=== PATIENT | male | born 1980 | race Caucasian/White ===

== ENCOUNTER 2021-02-28 07:21 | Emergency (ER) | payer OTHER, SELFPAY ==
--- NOTE | ~2021-02-28 | CT_ITS ---
EXAMINATION: CT SOFT TISSUE NECK WITH CONTRAST CLINICAL INFORMATION: Right tonsil swelling and pain COMPARISON: None TECHNIQUE: Following the intravenous administration of 60 mL of Omnipaque 350 intravenous contrast, helical imaging was performed in the axial plane with generation of coronal and sagittal reformatted images. This CT examination was performed using dose optimization techniques as appropriate, variously including the following: *Automated exposure control *Adjustment of mA and/or kV according to patient size (this includes techniques or standardized protocols for targeted exams where dose is matched to indication/reason for exam; i.e. extremities or head) *Use of iterative reconstruction technique DLP: 843 mGy-cm FINDINGS: There is a soft tissue mass is seen in the right side of the oropharynx and hypopharynx. This involves the right palatine tonsil region and base of the tongue and extends to the right side of the vallecula and epiglottis. This abuts and displaces the uvula to the left. This measures 3 x 3 x 5 cm in AP transverse and longitudinal dimension. This is heterogeneous in attenuation and has a 1.3 x 1.5 x 2.5 cm in AP transverse and longitudinal dimension low-attenuation area. Differential would include mass within the cystic or necrotic change and peritonsillar abscess. There is diffuse cervical lymphadenopathy. Largest lymph node measures 1.4 cm in short axis at the angle of the mandible axial image 64 series 2 and anterior to the [place] carotid artery axial image 70 series 2. The epiglottis is normal. The larynx is normal. Visualized intracranial structures are normal. The orbits are normal. The paranasal sinuses, mastoid air cells and middle ears are clear. Visualized intracranial structures are normal. There is a 1.5 x 1.5 x 1.8 cm nodule in the inferior left lobe of the thyroid gland. The salivary glands are normal. Vascular structures are normal. There is superior mediastinal lymphadenopathy. Largest lymph node is a right paratracheal and tracheoesophageal groove lymph node measuring 1.2 cm in short axis axial image 120 series 2. The superior mediastinum is otherwise normal. The lung apices are clear. Bony structures are unremarkable. CT/CT soft tissue neck w con IMPRESSION: Large heterogeneous soft tissue mass in the right or hypopharynx displacing the uvula and extending to the level of the vallecula right side of the epiglottis. This measures approximately 3 x 3 x 5 cm and has a 1.5 x 1.3 x 2.5 cm low-attenuation or cystic appearing area. Differential would include peritonsillar infection and small abscess versus neoplasm with area of necrosis. Clinical correlation recommended. Diffuse cervical and superior mediastinal lymphadenopathy. 1.5 x 1.5 x 1.8 cm left thyroid nodule. Ultrasound follow-up recommended.
[2021-02-28 07:55] VITALS: BP 151/87; PULSE 88; RESP 20; TEMP 36.8; O2SAT 97; BMI 36.6
[2021-02-28 09:24] LABS: MANUAL DIFF FLAG NO
[2021-02-28] MEDS: dexAMETHasone sod phosphate 10 MG/ML VIAL IVPUSH (09:25)
[2021-02-28] MEDS: Ketorolac Tromethamine 30 MG/ML VIAL IVPUSH (09:25)
[2021-02-28] MEDS: Clindamycin Phosphate/D5W 600 MG/50 ML PIGGYBACK 100 MG IV (09:25)
[2021-02-28 09:26] LABS: Basophils Absolute Auto 0.1 X10*3/uL (0.0-0.2); Basophils Percent Auto 0.3 % (0-2); Eosinophils Absolute Auto 0.1 X10*3/uL (0.0-0.4); Eosinophils Percent Auto 0.7 % (0-4); Hematocrit 44.1 % (42.0-52.0); Hemoglobin 14.7 g/dl (14.0-18.0); Imm Gran Abs Auto 0.06 X10*3/uL (0.00-0.03); Imm Gran Pct Auto 0.4 % (0.0-0.4); Lymphocytes Absolute Auto 2.7 X10*3/uL (1.2-4.9); Mean Corpuscular HGB Conc 33.3 g/dl (31.0-36.0); Mean Corpuscular Hemoglobin 28.5 pg (27.0-33.0); Mean Corpuscular Volume 85.6 fL (80.0-98.0); Mean Platelet Volume 9.5 fL (9.4-12.4); Monocytes Percent Auto 6.7 % (2-11); Neutrophils Absolute Auto 11.1 x10*3/uL (2.0-8.3); Neutrophils Percent Auto 73.9 % (45-73); Platelet Count 240 X10*3/uL (160-400); Red Blood Count 5.15 X10*6/uL (4.60-5.80); Red Cell Distribution Width 12.6 % (11.0-16.0)
--- NOTE | 2021-02-28 09:33 | ED_ITS ---
HPI - General Adult General Chief complaint: General Medical Stated complaint: Abcess Time Seen by Provider: 02/28/21 08:31 Source: patient Mode of arrival: ambulatory Limitations: no limitations History of Present Illness HPI narrative: 40-year-old male with history of tonsillectomy with recurrent right peritonsillar abscess here with reports of sore throat for several days right-sided. No fevers, chills, cough, difficulty breathing or swallowing. Patient tells me normally his abscess will start draining on its own. He did push on it yesterday and was able to express some drainage from the site. Related Data Previous Rx's Medication Instructions Recorded clindamycin HCl 300 mg capsule 300 mg PO Q8H #21 cap 02/28/21 hydrocodone 5 mg-acetaminophen 300 1 tab PO Q6H PRN #8 tab 02/28/21 mg tablet ibuprofen 600 mg tablet 600 mg PO Q8H PRN #20 tab 02/28/21 prednisone 20 mg tablet 40 mg PO DAILY #10 tab 02/28/21 Allergies Allergy/AdvReac Type Severity Reaction Status Date / Time No Known Allergies Allergy Unverified 11/25/19 16:30 Review of Systems Review of Systems: Yes all other systems are reviewed and are negative Constitutional: Constitutional: Reports no additional constitutional complaints, Denies body ache(s), Denies chills, Denies fever(s), Denies hea dache(s) and Denies weakness Eyes: Eyes: Reports no additional eye complaints and Denies change in vision ENT: Reports system reviewed and no additional complaints, except as documented, Denies dizziness, Denies headache(s), Denies nasal congestion, Denies nasal discharge, Denies neck pain and Reports sore throat Cardiovascular: Cardiovascular: Reports no additional cardiovascular complaints, Denies chest pain, Denies leg edema and Denies dyspnea Respiratory: Respiratory: Reports no additional respiratory complaints, Denies cough and Denies dyspnea Gastrointestinal: Gastrointestinal: Reports no additional gastrointestinal complaints, Denies abdominal pain, Denies diarrhea, Denies nausea and Denies vomiting Genitourinary: Genitourinary: Denies urinary incontinence Musculoskeletal: Musculoskeletal: Reports no additional musculoskeletal complaints, Denies back pain, Denies arthralgias, Denies joint swelling, Denies neck pain, Denies numbness and Denies tingling Integumentary/Breasts: Skin/Breast: Reports system reviewed and no additional complaints, except as docu and Denies rash Neurologic: Reports system reviewed and no additional complaints, except as documented, Denies Abnormal speech present, Denies dizziness, Denies headache(s), Denies numbness, Denies tingling and Denies weakness PMFSH Past Medical History Attestation statement: The following information was validated with the patient. Source: old records reviewed and nursing notes reviewed Social History Social History Advance Directives: No Advance Directives Information Provided: No Physical Exam Vital Signs: Vital Signs: Last Vital Signs Temp 98.3 F 02/28/21 07:55 Pulse 78 02/28/21 11:28 Resp 19 02/28/21 11:28 BP 144/82 H 02/28/21 11:28 Pulse Ox 98 02/28/21 11:28 BMI result Body Mass Index 36.6 Const: General: cooperative, healthy appearing, comfortable and no acute distress Orientation/consciousness: patient oriented x3 Limitations: no limitations HENMT: Head: Yes normal to inspection Ears: hearing grossly normal bilaterally and TM's normal bilaterally General nose exam: Normal external nose present Face and sinus: Yes normal facial exam Mouth: Normal oral and palatal mucosa present Throat: Yes posterior oropharynx normal, Yes uvula midline and Yes other (To the right tonsillar area there is swelling with erythema. No fluctuance) Eyes: General: appearance normal, both eyes and all related structures Pupils: Equal, round and reactive pupils present Neck: Neck: Yes normal visual inspection, Yes full ROM, Yes no lymphadenopathy and Yes no meningeal signs Chest: Chest palpation & inspection: normal inspection of the chest Resp: Effort & Inspection: normal respiratory effort Auscultation: clear to auscultation bilaterally Cardio: Rate: regular rate Rhythm: regular rhythm Peripheral pulses: Peripheral pulses 2+ throughout GI: Inspection: Yes normal to inspection Palpation (GI): Soft to palpation and nontender Auscultation: normal bowel sounds Back/Spine/Pelvis: Thoracic/Lumbar Spine: thoracic and lumbar spine normal to inspection Skin: General skin exam: no rashes or lesions noted Neuro: General: patient oriented x3, no meningeal signs, no focal motor deficits and normal sensation to monofilament Cranial nerves: Yes Equal, round and reactive pupils present Cognition (Neuro): normal cognition Spee ch: No Abnormal speech present Gait exam (Neuro): Normal gait present Motor exam (neuro): 5/5 motor strength present throughout Extrem: General: Yes normal to inspection Course Course Course Narrative: 40-year-old male with a history of tonsillectomy and recurrent right peritonsillar abscess here with reports of right-sided sore throat for several days. On exam the patient has right tonsillar swelling with erythema. There is no obvious fluctuance. The left tonsillar area is normal in appearance. No difficulty swallowing or breathing. No lymphadenopathy or meningeal signs. Patient is tolerating his secretions with no difficulty. Will check CT neck, labs, strep screening and COVID testing. Will give Decadron, clindamycin and analgesia 1140-strep test is positive. Labs show a mild leukocytosis which is likely reactive. The patient has a mildly elevated blood glucose of 277. He has no history of diabetes. This may be reactive from infection. No evidence of DKA. I discussed with the patient he should follow-up with primary care doctor to have repeat labs as well as an A1c to confirm diagnosis of diabetes. Additionally the patient has a CT scan of the neck which shows -Large heterogeneous soft tissue mass in the right or hypopharynx displacing the uvula and extending to the level of the vallecula right side of the epiglottis. This measures approximately 3 x 3 x 5 cm and has a 1.5 x 1.3 x 2.5 cm low-attenuation or cystic appearing area. Differential would include peritonsillar infection and small abscess versus neoplasm with area of necrosis. Clinical correlation recommended. Diffuse cervical and superior mediastinal lymphadenopathy. 1.5 x 1.5 x 1.8 cm left thyroid nodule. Ultrasound follow-up recommended.? This case was discussed with my attending Dr. Sahu. Recommend treat patient clinically for peritonsillar abscess and clindamycin. There is no mandible area for incision and drainage. Patient is tolerating his secretions with no difficulty. He is feeling better when I reexamined him. Due to smoking history and findings on CT scan and history of recurrent peritonsillar abscess reportedly is best the patient follow-up with ear nose and throat outpatient. I discussed the findings of the CT scan with him. We discussed pain may need to have further testing done by ENT outpatient. Reviewed worrisome signs and symptoms such as difficulty swallowing, difficulty breathing, high fever and when to return to the emergency department. Comfortable discharge home. Medical Decision Making Medical Records Medical records reviewed: Yes I reviewed the patient's medical records. Lab Data Lab results reviewed: Yes I reviewed the patient's lab results. Result diagrams: 02/28/21 09:20 02/28/21 09:19 Labs: Lab Results 02/28/21 02/28/21 02/28/21 Range/Units 09:19 09:20 09:20 WBC 15.0 H (4.8-10.8) X10*3/uL RBC 5.15 (4.60-5.80) X10*6/uL Hgb 14.7 (14.0-18.0) g/dl Hct 44.1 (42.0-52.0) % MCV 85.6 (80.0-98.0) fL MCH 28.5 (27.0-33.0) pg MCHC 33.3 (31.0-36.0) g/dl RDW 12.6 (11.0-16.0) % Plt Count 240 (160-400) X10*3/uL MPV 9.5 (9.4-12.4) fL Immature Gran % (Auto) 0.4 (0.0-0.4) % Neut % (Auto) 73.9 H (45-73) % Lymph % (Auto) 18.0 L (20-40) % Kimball % (Auto) 6.7 (2-11) % Eos % (Auto) 0.7 (0-4) % Baso % (Auto) 0.3 (0-2) % Lymph # (Auto) 2.7 (1.2-4.9) X10*3/uL Kimball # (Auto) 1.0 (0.1-1.2) X10*3/uL Eos # (Auto) 0.1 (0.0-0.4) X10*3/uL Baso # (Auto) 0.1 (0.0-0.2) X10*3/uL Abs Immat Gran (auto) 0.06 H (0.00-0.03) X10*3/uL Absolute Neuts (auto) 11.1 H (2.0-8.3) x10*3/uL Absolute Nucleated RBC 0.000 (0.0-0.012) X10*3/uL Nucleated RBC % (auto) 0.0 (0.0-0.2) /100WBC Sodium 136 (135-145) mmol/L Potassium 4.1 (3.3-5.1) mmol/L Chloride 100 (96-108) mmol/L Carbon Dioxide 25 (22-29) mmol/L Anion Gap 15 (12-20) BUN 10 (9-16) mg/dL Creatinine 0.81 (0.5-1.4) mg/dL Estim Creat Clear Calc 165.4 Estimated GFR > 60 Random Glucose 277 H (60-115) mg/dL Calcium 9.1 (8.4-10.2) mg/dL COVID-19 (PIETER) (Negative) COVID-19 Clin Com S. pyogenes GrpA ABNER Positive A (Negative) 02/28/21 Range/Units 09:20 WBC (4.8-10.8) X10*3/uL RBC (4.60-5.80) X10*6/uL Hgb (14.0-18.0) g/dl Hct (42.0-52.0) % MCV (80.0-98.0) fL MCH (27.0-33.0) pg MCHC (31.0-36.0) g/dl RDW (11.0-16.0) % Plt Count (160-400) X10*3/uL MPV (9.4-12.4) fL Immature Gran % (Auto) (0.0-0.4) % Neut % (Auto) (45-73) % Lymph % (Auto) (20-40) % Kimball % (Auto) (2-11) % Eos % (Auto) (0-4) % Baso % (Auto) (0-2) % Lymph # (Auto) (1.2-4.9) X10*3/uL Kimball # (Auto) (0.1-1.2) X10*3/uL Eos # (Auto) (0.0-0.4) X10*3/uL Baso # (Auto) (0.0-0.2) X10*3/uL Abs Immat Gran (auto) (0.00-0.03) X10*3/uL Absolute Neuts (auto) (2.0-8.3) x10*3/uL Absolute Nucleated RBC (0.0-0.012) X10*3/uL Nucleated RBC % (auto) (0.0-0.2) /100WBC Sodium (135-145) mmol/L Potassium (3.3-5.1) mmol/L Chloride (96-108) mmol/L Carbon Dioxide (22-29) mmol/L Anion Gap (12-20) BUN (9-16) mg/dL Creatinine (0.5-1.4) mg/dL Estim Creat Clear Calc Estimated GFR Random Glucose (60-115) mg/dL Calcium (8.4-10.2) mg/dL COVID-19 (PIETER) Negative (Negative) COVID-19 Clin Com See Note S. pyogenes GrpA ABNER (Negative) Imaging Data CT necj soft tissue: Attestation: I personally reviewed and interpreted this imaging study as follows: Radiologist's impression: Large heterogeneous soft tissue mass in the right or hypopharynx displacing the uvula and extending to the level of the vallecula right side of the epiglottis. This measures approximately 3 x 3 x 5 cm and has a 1.5 x 1.3 x 2.5 cm low-attenuation or cystic appearing area. Differential would include peritonsillar infection and small abscess versus neoplasm with area of necrosis. Clinical correlation recommended. Diffuse cervical and superior mediastinal lymphadenopathy. 1.5 x 1.5 x 1.8 cm left thyroid nodule. Ultrasound follow-up recommended.? Discharge Plan Discharge Clinical Impression: Strep pharyngitis, Abscess, peritonsillar, Hyperglycemia Patient Disposition: Home, Self-Care Instructions: Pharyngitis (ED), Peritonsillar Abscess (ED) Additional Instructions: Your blood sugar was mildly elevated today. You need to follow-up with primary care doctor be tested for diabetes. Your strep test was positive. Your CT scan shows what appears to be an earlier peritonsillar abscess. However due to her smoking history you need to be seen by ear nose and throat doctor to have further evaluation to make sure that this is not a malignancy. Start your antibiotics and or prednisone tomorrow Prescriptions: New prednisone 20 mg tablet 40 mg PO DAILY Qty: 10 RF: 0 clindamycin HCl 300 mg capsule 300 mg PO Q8H Qty: 21 RF: 0 ibuprofen 600 mg tablet 600 mg PO Q8H PRN (Reason: pain) Qty: 20 RF: 0 hydrocodone-acetaminophen 5-300 mg tablet 1 tab PO Q6H PRN (Reason: pain) Qty: 8 RF: 0 Referrals: Marcello Norman [Physician] - 2 days Physician,Noe [Primary Care Provider] - 2 days Interventions: ED Discharge Assessment Last Done: 02/28/21 11:28 Discharge Date/Time: 02/28/21 11:30
[2021-02-28 09:41] LABS: Anion Gap 15 (12-20); Blood Urea Nitrogen 10 mg/dL (9-16); Calcium 9.1 mg/dL (8.4-10.2); Carbon Dioxide 25 mmol/L (22-29); Chloride 100 mmol/L (96-108); Creatinine Clr Calc Pharmacy 165.4; Estimated Glomerular Filt Rate > 60; Glucose Random 277 mg/dL (60-115); Potassium 4.1 mmol/L (3.3-5.1); Sodium 136 mmol/L (135-145)
[2021-02-28 09:41] LABS: COVID-19 Test Negative (Negative)
[2021-02-28 09:46] LABS: IDNOW Serial# 08D9AD1C; Strep A Nucleic Acid Positive (Negative)
[2021-02-28] MEDS: iohexoL 350 MG/ML 100 ML INFUS..BTL IV (10:08)
[2021-02-28 11:28] VITALS: BP 144/82; PULSE 78; RESP 19; O2SAT 98
== END 2021-02-28 11:30 | disposition home or self-care (01) ==
PROVIDERS: Physician Assistant; Emergency Provider Emergency Medicine Emergency Medical Services
DX: J02.0 Streptococcal pharyngitis (principal); R73.9 Hyperglycemia, unspecified; Z20.822 Contact with and (suspected) exposure to COVID-19; Z79.899 Other long term (current) drug therapy
CPT/HCPCS: 36415; 70491; 80048; 85025; 87635; 87651; 96365; 96375; 99283; 99284; J1100; J1885; Q9967

== ENCOUNTER 2021-08-07 11:27 | Emergency (ER) | payer OTHER, SELFPAY ==
--- NOTE | ~2021-08-07 | US_ITS ---
EXAMINATION: US VENOUS ULTRASOUND WITH DOPPLER LOWER EXTREMITY, LEFT CLINICAL INFORMATION: Left lower extremity pain and swelling COMPARISON: None TECHNIQUE: Ultrasound of the deep veins is performed from the hip to the calf with compression sonography and color and pulse Doppler assessment. Spectral analysis with color-flow imaging is performed. FINDINGS: Thrombus is present in the peroneal veins as well as posterior tibial veins extending into the popliteal and the femoral vein up to the level of the mid thigh. The common femoral vein appears normal. The great saphenous vein appears normal. The contralateral right common femoral vein appears normal. There is no significant popliteal fossa cyst. US/US venous duplex LE LT IMPRESSION: Acute moderately extensive DVT involving the calf and thigh as described above. The common femoral vein is free of thrombus. An addendum will be issued after the referring provider is contacted..
[2021-08-07 12:20] VITALS: BP 145/87; PULSE 98; RESP 18; TEMP 36.8; O2SAT 99; BMI 34.9
[2021-08-07 14:35] LABS: Prothrombin Time 11.8 SEC (9.9-13.0)
[2021-08-07 14:55] LABS: Alanine Aminotransferase 30 U/L (0-40); Albumin Level 3.7 g/dL (3.5-5.0); Alkaline Phosphatase 101 U/L (39-117); Anion Gap 15 (12-20); Aspartate Amino Transferase 21 U/L (5-37); Bilirubin Total 0.5 mg/dL (0.0-1.0); Blood Urea Nitrogen 11 mg/dL (9-16); Calcium 9.3 mg/dL (8.4-10.2); Carbon Dioxide 24 mmol/L (22-29); Chloride 99 mmol/L (96-108); Creatinine Clr Calc Pharmacy 161.6; Estimated Glomerular Filt Rate > 60; Glucose Random 305 mg/dL (60-115); Potassium 4.7 mmol/L (3.3-5.1); Sodium 133 mmol/L (135-145)
[2021-08-07 15:11] LABS: Basophils Absolute Auto 0.1 X10*3/uL (0.0-0.2); Basophils Percent Auto 0.6 % (0-2); Eosinophils Absolute Auto 0.2 X10*3/uL (0.0-0.4); Hematocrit 42.1 % (42.0-52.0); Hemoglobin 14.3 g/dl (14.0-18.0); Imm Gran Abs Auto 0.02 X10*3/uL (0.00-0.03); Imm Gran Pct Auto 0.2 % (0.0-0.4); Lymphocytes Absolute Auto 3.8 X10*3/uL (1.2-4.9); Lymphocytes Percent Auto 40.4 % (20-40); Mean Corpuscular Hemoglobin 28.4 pg (27.0-33.0); Mean Corpuscular Volume 83.7 fL (80.0-98.0); Monocytes Absolute Auto 0.6 X10*3/uL (0.1-1.2); Monocytes Percent Auto 6.7 % (2-11); Neutrophils Absolute Auto 4.7 x10*3/uL (2.0-8.3); Neutrophils Percent Auto 50.1 % (45-73); Platelet Count 246 X10*3/uL (160-400); Red Blood Count 5.03 X10*6/uL (4.60-5.80); Red Cell Distribution Width 12.6 % (11.0-16.0); White Blood Count 9.4 X10*3/uL (4.8-10.8)
--- NOTE | 2021-08-07 15:22 | ED.LOWEXIN ---
HPI - Extremity Injury (Lower) General Chief Complaint: Extremity Injury, Lower Stated Complaint: blood clot l leg Time Seen by Provider: 08/07/21 15:02 Source: patient Mode of arrival: ambulatory Limitations: no limitations History of Present Illness HPI Narrative: This is a 40-year-old male with no known medical history who presents with left leg swelling and pain since Friday morning with waking. Of note the patient does not have a primary care doctor and he has not seen 1 in several years. He tells me that on Friday he was in [place] for his son sporting game. He did spend a lot of time walking around but felt well. When he woke up Friday morning he notices left leg was swollen and has been painful since. He denies any cough, shortness of breath, chest pain, fever. Patient denies any recent travel. No recent illness. No recent surgeries. He is not working right now but tells me he is quite active. He does have a family history of blood clots (mom had PE) but no known history of clotting disorders. Related Data Previous Rx's Medication Instructions Recorded clindamycin HCl 300 mg capsule 300 mg PO Q8H #21 cap 02/28/21 hydrocodone 5 mg-acetaminophen 300 1 tab PO Q6H PRN #8 tab 02/28/21 mg tablet ibuprofen 600 mg tablet 600 mg PO Q8H PRN #20 tab 02/28/21 prednisone 20 mg tablet 40 mg PO DAILY #10 tab 02/28/21 apixaban 5 mg (74 tabs) tablets in 5 mg PO BID #74 ea 08/07/21 a dose pack (Novi DVT-PE Treat 30D Start) metformin 500 mg tablet 500 mg PO BID #60 tab 08/07/21 Allergies Allergy/AdvReac Type Severity Reaction Status Date / Time No Known Allergies Allergy Verified 08/07/21 12:19 Review of Systems Review of Systems: Yes all other systems are reviewed and are negative Constitutional: Constitutional: Reports no additional constitutional complaints, Denies body ache(s), Denies chills, Denies fever(s), Denies headache(s) and Denies weakness Eyes: Eyes: Reports no additional eye complaints and Denies change in vision ENT: Reports system reviewed and no additional complaints, except as documented, Denies dizziness, Denies headache(s), Denies nasal congestion, Denies nasal discharge and Denies neck pain Cardiovascular: Cardiovascular: Reports no additional cardiovascular complaints, Denies chest pain, Reports leg edema and Denies dyspnea Respiratory: Respiratory: Reports no additional respiratory complaints, Denies cough and Denies dyspnea Gastrointestinal: Gastrointestinal: Reports no additional gastrointestinal complaints, Denies abdominal pain, Denies diarrhea, Denies nausea and Denies vomiting Genitourinary: Genitourinary: Denies urinary incontinence Musculoskeletal: Musculoskeletal: Reports no additional musculoskeletal complaints, Denies back pain, Denies arthralgias, Denies joint swelling, Denies neck pain, Denies numbness and Denies tingling Integumentary/Breasts: Skin/Breast: Reports system reviewed and no additional complaints, except as docu and Denies rash Neurologic: Reports system reviewed and no additional complaints, except as documented, Denies Abnormal speech present, Denies dizziness, Denies headache(s), Denies numbness, Denies tingling and Denies weakness PMFSH Past Medical History Attestation statement: The following information was validated with the patient. Source: old records reviewed and nursing notes reviewed Social History Social History Advance Directives: No Advance Directives Information Provided: No Physical Exam Vital Signs: Vital Signs: Last Vital Signs Temp 98.2 F 08/07/21 12:20 Pulse 98 08/07/21 12:20 Resp 18 08/07/21 12:20 BP 145/87 H 08/07/21 12:20 Pulse Ox 99 08/07/21 12:20 BMI result Body Mass Index 34.9 Const: General: cooperative, healthy appearing, comfortable and no acute distress Orientation/consciousness: patient oriented x3 Limitations: no limitations HEENT: Head: Yes normal to inspection Ears: hearing grossly normal bilaterally General nose exam: Normal external nose present Face and sinus: Yes normal facial exam Mouth: Normal oral and palatal mucosa present Throat: Yes posterior oropharynx normal Eyes: General: appearance normal, both eyes and all related structures Pupils: Equal, round and reactive pupils present Neck: Neck: Yes normal visual inspection Chest: Chest palpation & inspection: normal inspection of the chest Resp: Effort & Inspection: normal respiratory effort Auscultation: clear to auscultation bilaterally Cardio: Rate: regular rate Rhythm: regular rhythm Peripheral pulses: Peripheral pulses 2+ throughout GI: Inspection: Yes normal to inspection Palpation (GI): Soft to palpation and nontender Auscultation: normal bowel sounds Back/Spine/Pelvis: Thoracic/Lumbar Spine: thoracic and lumbar spine normal to inspection Skin: General skin exam: no rashes or lesions noted Neuro: General: patient oriented x3, no focal motor deficits and normal sensation to monofilament Cranial nerves: Yes Equal, round and reactive pupils present Cognition (Neuro): normal cognition Speech: No Abnormal speech present Gait exam (Neuro): Normal gait present Motor exam (neuro): 5/5 motor strength present throughout Extrem: Other: The left calf is swollen, tender throughout. Palpable DP and PT pulses. Full range of motion distally. No warmth or redness. Right calf is normal General: Yes normal to inspection Course Course Course Narrative: 40-year-old male with no known medical history presents with left leg swelling and pain for 3 days. Ultrasound ordered from triage shows a LLE DVT. No history of same. Unknown cause, unable to determine any provoking factors. Mom does have history of blood clots. No tachypnea, hypoxia or tachycardia. No complaints of chest pain or shortness of breath. PE less likely. Obtain labs. Patient is noted to have mild hyperglycemia with no evidence of DKA. Patient tells me he has not seen a primary care doctor in many years. Of note patient was seen here in February 2021 for a peritonsillar abscess. At that time he was noted to have hyperglycemia which was mild and was recommended he follow-up with a primary care doctor. Patient tells me he did not do so. Likely underlying diabetes. A1c sent. 20 min spent with patient discussing anticoagulation. Will initiate Eliquis. Will start low-dose metformin for diabetes. Patient met with case management as he does not have a primary care doctor. He was provided with a list of primary care doctors at accept his insurance. Patient is aware he will need to call as he will need to be on anticoagulation for at least 3 months. I have given a one-month supply medication. Reviewed worrisome signs and symptoms of when to return to the emergency department. Comfortable discharge home. MDM - Extremity Injury (Lower) Medical Records Attestation: I reviewed the patient's medical records. Lab Data Attestation: I reviewed the patient's lab results. Result diagrams: 08/07/21 15:00 08/07/21 14:16 Labs: Lab Results 08/07/21 08/07/21 08/07/21 Range/Units 14:16 14:16 15:00 WBC 9.4 (4.8-10.8) X10*3/uL RBC 5.03 (4.60-5.80) X10*6/uL Hgb 14.3 (14.0-18.0) g/dl Hct 42.1 (42.0-52.0) % MCV 83.7 (80.0-98.0) fL MCH 28.4 (27.0-33.0) pg MCHC 34.0 (31.0-36.0) g/dl RDW 12.6 (11.0-16.0) % Plt Count 246 (160-400) X10*3/uL MPV 9.0 L (9.4-12.4) fL Immature Gran % (Auto) 0.2 (0.0-0.4) % Neut % (Auto) 50.1 (45-73) % Lymph % (Auto) 40.4 H (20-40) % [place] % (Auto) 6.7 (2-11) % Eos % (Auto) 2.0 (0-4) % Baso % (Auto) 0.6 (0-2) % Lymph # (Auto) 3.8 (1.2-4.9) X10*3/uL [place] # (Auto) 0.6 (0.1-1.2) X10*3/uL Eos # (Auto) 0.2 (0.0-0.4) X10*3/uL Baso # (Auto) 0.1 (0.0-0.2) X10*3/uL Abs Immat Gran (auto) 0.02 (0.00-0.03) X10*3/uL Absolute Neuts (auto) 4.7 (2.0-8.3) x10*3/uL Absolute Nucleated RBC 0.000 (0.0-0.012) X10*3/uL Nucleated RBC % (auto) 0.0 (0.0-0.2) /100WBC PT 11.8 (9.9-13.0) SEC INR 1.0 (0.9-1.1) Sodium 133 L (135-145) mmol/L Potassium 4.7 (3.3-5.1) mmol/L Chloride 99 (96-108) mmol/L Carbon Dioxide 24 (22-29) mmol/L Anion Gap 15 (12-20) BUN 11 (9-16) mg/dL Creatinine 0.81 (0.5-1.4) mg/dL Estim Creat Clear Calc 161.6 Estimated GFR > 60 Random Glucose 305 H (60-115) mg/dL Estimat Average Glucose mg/dL Hemoglobin A1c % % Calcium 9.3 (8.4-10.2) mg/dL Total Bilirubin 0.5 (0.0-1.0) mg/dL AST 21 (5-37) U/L ALT 30 (0-40) U/L Alkaline Phosphatase 101 (39-117) U/L Total Protein 7.0 (6.5-8.0) g/dL Albumin 3.7 (3.5-5.0) g/dL 08/07/21 Range/Units 15:00 WBC (4.8-10.8) X10*3/uL RBC (4.60-5.80) X10*6/uL Hgb (14.0-18.0) g/dl Hct (42.0-52.0) % MCV (80.0-98.0) fL MCH (27.0-33.0) pg MCHC (31.0-36.0) g/dl RDW (11.0-16.0) % Plt Count (160-400) X10*3/uL MPV (9.4-12.4) fL Immature Gran % (Auto) (0.0-0.4) % Neut % (Auto) (45-73) % Lymph % (Auto) (20-40) % [place] % (Auto) (2-11) % Eos % (Auto) (0-4) % Baso % (Auto) (0-2) % Lymph # (Auto) (1.2-4.9) X10*3/uL [place] # (Auto) (0.1-1.2) X10*3/uL Eos # (Auto) (0.0-0.4) X10*3/uL Baso # (Auto) (0.0-0.2) X10*3/uL Abs Immat Gran (auto) (0.00-0.03) X10*3/uL Absolute Neuts (auto) (2.0-8.3) x10*3/uL Absolute Nucleated RBC (0.0-0.012) X10*3/uL Nucleated RBC % (auto) (0.0-0.2) /100WBC PT (9.9-13.0) SEC INR (0.9-1.1) Sodium (135-145) mmol/L Potassium (3.3-5.1) mmol/L Chloride (96-108) mmol/L Carbon Dioxide (22-29) mmol/L Anion Gap (12-20) BUN (9-16) mg/dL Creatinine (0.5-1.4) mg/dL Estim Creat Clear Calc Estimated GFR Random Glucose (60-115) mg/dL Estimat Average Glucose 315 mg/dL Hemoglobin A1c % 12.6 % Calcium (8.4-10.2) mg/dL Total Bilirubin (0.0-1.0) mg/dL AST (5-37) U/L ALT (0-40) U/L Alkaline Phosphatase (39-117) U/L Total Protein (6.5-8.0) g/dL Albumin (3.5-5.0) g/dL Imaging Data Venous US: Attestation: I personally reviewed and interpreted this imaging study as follows: Radiologist's impression: TECHNIQUE: Ultrasound of the deep veins is performed from the hip to the calf with compression sonography and color and pulse Doppler assessment. Spectral analysis with color-flow imaging is performed. FINDINGS: Thrombus is present in the peroneal veins as well as posterior tibial veins extending into the popliteal and the femoral vein up to the level of the mid thigh. The common femoral vein appears normal. The great saphenous vein appears normal. The contralateral right common femoral vein appears normal. There is no significant popliteal fossa cyst. US/US venous duplex LE LT IMPRESSION: Acute moderately extensive DVT involving the calf and thigh as described above. The common femoral vein is free of thrombus. An addendum will be issued after the referring provider is contacted.. Discharge Plan Discharge Clinical Impression: DVT (deep venous thrombosis), Diabetes mellitus Patient Disposition: Home, Self-Care Instructions: Deep Vein Thrombosis (ED), Type 2 Diabetes in Adults: New Diagnosis (DC), Safe Use of Anticoagulants (ED), Blood Thinners (ED), Diabetes and Nutrition (ED) Additional Instructions: You are being started on a blood thinning medication. This means it increases your risk of bleeding. Seek care in the emergency department for blood in the urine, blood in the stool, vomiting blood. Please come to the emergency department if you hit your head. You can only take Tylenol for pain at home. Do not use any anti-inflammatory medications. You were given a list of primary care doctors. He will need to follow up with them as I only given you a 30 day supply of medication Consider buying compression stockings for your lower legs Prescriptions: [facility] DVT-PE Treat 30D Start 5 mg (74 tabs) tablets,dose pack 5 mg PO BID Qty: 74 0RF Rx Instructions: Take 2 tablets twice daily for 7 days followed by 1 tablet twice daily metformin 500 mg tablet 500 mg PO BID Qty: 60 0RF No Action prednisone 20 mg tablet 40 mg PO DAILY Qty: 10 0RF clindamycin HCl 300 mg capsule 300 mg PO Q8H Qty: 21 0RF ibuprofen 600 mg tablet 600 mg PO Q8H PRN (Reason: pain) Qty: 20 0RF hydrocodone-acetaminophen 5-300 mg tablet 1 tab PO Q6H PRN (Reason: pain) Qty: 8 0RF Referrals: Amaya Curran MD [Physician] - 2 weeks Interventions: ED Discharge Assessment Last Done: 08/07/21 16:09 Discharge Date/Time: 08/07/21 16:12
--- NOTE | 2021-08-07 15:28 | MHC.CM.ED ---
Received case management consult from Monica LIZARRAGA. Roseanna came to ER due to a LLE DVT. Patient does not have a PCP. Met with patient in regards to discharge planning. Patient lives with his sig other and their 4 kids, ambulates independently and had no services prior to coming to the ER. Patient has tried to find a PCP. However, every office he called wasn't accepting new patients. List of PCP's contracted with patient's insurance that are accepting new patients provided. Patient encouraged to call offices to make sure they're accepting new patients and then call [facility] to change the PCP to that provided. Patient verbalizes understanding. Eliquis card already given to patient by Monica LIZARRAGA. Continue to monitor for d/c needs.
[2021-08-07 15:38] LABS: Estimated Average Glucose 315 mg/dL; Hemoglobin A1c % 12.6 %
== END 2021-08-07 16:12 | disposition home or self-care (01) ==
PROVIDERS: Nurse Practitioner Family; Emergency Provider Emergency Medicine
DX: I82.452 Acute embolism and thrombosis of left peroneal vein (principal); M79.605 Pain in left leg; R22.42 Localized swelling, mass and lump, left lower limb; E11.9 Type 2 diabetes mellitus without complications
CPT/HCPCS: 36415; 80053; 83036; 85025; 85610; 93971; 99283; 99284

== ENCOUNTER 2022-07-24 22:26 | Emergency (ER) | payer OTHER, SELFPAY ==
--- NOTE | ~2022-07-24 | XR_ITS ---
EXAMINATION: XR CHEST CLINICAL INFORMATION: Dyspnea COMPARISON: None available. TECHNIQUE: 2 views of the chest were obtained. FINDINGS: There is right middle lobe consolidation. The exam is otherwise unremarkable with no other significant abnormality noted involving the heart, left lung, mediastinum, bony thorax or soft tissues. XR/XR chest 2V IMPRESSION: Right middle lobe pneumonia.
[2022-07-24 22:33] VITALS: BP 149/88; PULSE 89; RESP 18; TEMP 36.6; O2SAT 94; BMI 33.2
--- NOTE | 2022-07-25 00:07 | ED.GENADULT ---
HPI - General Adult General Chief complaint: Dyspnea Stated complaint: pneumonia? Time Seen by Provider: 07/25/22 00:01 Source: patient Mode of arrival: ambulatory Limitations: no limitations History of Present Illness HPI narrative: Patient comes to the emergency room complaining worsening cough. Patient states that 2 weeks ago he was diagnosed with pneumonia, he was admitted to [facility] for couple of days. Then he was discharged but he was sent home without any antibiotics. For last 2 weeks, patient has been complaining of worsening cough with sputum. No chest pain , shortness of breath with exertion. Related Data Previous Rx's Medication Instructions Recorded clindamycin HCl 300 mg capsule 300 mg PO Q8H #21 caps 02/28/21 hydrocodone 5 mg-acetaminophen 300 1 tab PO Q6H PRN pain #8 tabs 02/28/21 mg tablet ibuprofen 600 mg tablet 600 mg PO Q8H PRN pain #20 tabs 02/28/21 prednisone 20 mg tablet 40 mg PO DAILY #10 tabs 02/28/21 apixaban 5 mg (74 tabs) tablets in 5 mg PO BID #74 ea 08/07/21 a dose pack (Omegawave DVT-PE Treat 30D Start) metformin 500 mg tablet 500 mg PO BID #60 tabs 08/07/21 levofloxacin 500 mg tablet 500 mg PO DAILY #9 tabs 07/25/22 Allergies Allergy/AdvReac Type Severity Reaction Status Date / Time No Known Allergies Allergy Verified 08/07/21 12:19 Review of Systems Review of Systems: Constitutional : No Weight loss, No Fever, No Chills, No Night Sweats, No Fatigue, No Malaise ENT/Mouth : No Hearing loss, No Ear Pain, No Nasal Congestion, No Sinus Pain, No Hoarseness, No sore throat, No Rhinorrhea, No Swallowing Difficulty Eyes: No Eye Pain, No Swelling, No Redness, No Foreign Body, No Discharge, No Vision Changes Cardiovascular : No Chest Pain, No SOB, No Dyspnea on Exertion, No Orthopnea, No Edema, No Palpitations Respiratory : Worsening productive cough, No Wheezing, No Smoke Exposure, No Dyspnea Gastrointestinal : No Nausea, No Vomiting, No Diarrhea, No Constipation, No abdominal Pain, No Hematochezia, No Melena Genitourinary : no irregular bleeding, No Dysuria, No Urinary Frequency, No Hematuria, No Urinary Incontinence, No Urgency, No Flank Pain, No Urinary Flow Changes, No Hesitancy Musculoskeletal : No joint pain, No Myalgias, No Joint Swelling Skin : No Skin Lesions, No rash Neuro : No Weakness, No Numbness, No Paresthesias, No Loss of Consciousness, No Dizziness, No Headache Psych : No Anxiety/Panic, No Depression, No SI/HI/AH/VH, No Social Issues, Heme/Lymph: No Bruising, No Bleeding,No Lymphadenopathy Endocrine : No Polyuria, No Polydipsia, No Temperature Intolerance [facility] Past Medical History Medical History Diabetes Social History Social History Advance Directives: No Advance Directives Information Provided: No Physical Exam ED Vital Signs: Vital Signs - 24 hr 07/24/22 22:33 07/25/22 00:16 Temperature 97.8 F 98.5 F Pulse Rate 89 81 Respiratory Rate 18 22 H Blood Pressure 149/88 H 147/86 H Pulse Oximetry 94 94 Oxygen Delivery Method Room Air Room Air BMI result Body Mass Index 33.2 Const Other: Appearance: Alert. Oriented X3. No acute distress. Eyes: Pupils equal, round and reactive to light. ENT: Pharynx normal. Neck: Normal inspection. Neck supple. No lymph nodes noted. No crepitus CVS: Normal heart rate and rhythm. Pulses normal. Normal S1 and S2 Respiratory: No respiratory distress. Breath sounds normal. No Wheezing. No rales Abdomen: Soft and nontender. No rigidity. No distention. Skin: Skin warm and dry. Normal skin color. Normal skin turgor. Extremities: No lower extremity edema. No Lacerations. No Rash Neuro: Oriented X 3. No motor deficit. No sensory deficit. Moving all extremities. No slurred speech. CN 2 through 12 grossly intact Psych: calm, cooperative, normal affect Medical Decision Making Medical Decision Making MDM Narrative: -patient did not finish entire course of antibiotics for pneumonia. Patient did not come before because he was hoping that he would feel better. However, his symptoms are actually worsening. -my interpretation of chest x-ray, right middle/lower lobe pneumonia -blood pressure stable, no fever, sepsis not suspected -patient was given the 1st dose of antibiotics in the emergency room, [facility] -patient's ambulation trial was successful, oxygen saturation remained at 95% on room air Lab Data [facility] Lab Attestation statement: I reviewed the patient's lab results. 07/25/22 00:51 07/25/22 00:51 Labs: Lab Results 07/25/22 Range/Units 00:51 WBC 9.7 (4.8-10.8) X10*3/uL RBC 4.56 L (4.60-5.80) X10*6/uL Hgb 13.3 L (14.0-18.0) g/dl Hct 39.2 L (42.0-52.0) % MCV 86.0 (80.0-98.0) fL MCH 29.2 (27.0-33.0) pg MCHC 33.9 (31.0-36.0) g/dl RDW 12.7 (11.0-16.0) % Plt Count 353 D (160-400) X10*3/uL MPV 9.2 L (9.4-12.4) fL Immature Gran % (Auto) 0.3 (0.0-0.4) % Neut % (Auto) 61.7 (45-73) % Lymph % (Auto) 27.7 (20-40) % [place] % (Auto) 7.6 (2-11) % Eos % (Auto) 2.0 (0-4) % Baso % (Auto) 0.7 (0-2) % Lymph # (Auto) 2.7 (1.2-4.9) X10*3/uL [place] # (Auto) 0.7 (0.1-1.2) X10*3/uL Eos # (Auto) 0.2 (0.0-0.4) X10*3/uL Baso # (Auto) 0.1 (0.0-0.2) X10*3/uL Abs Immat Gran (auto) 0.03 (0.00-0.03) X10*3/uL Absolute Neuts (auto) 6.0 (2.0-8.3) x10*3/uL Absolute Nucleated RBC 0.000 (0.0-0.012) X10*3/uL Nucleated RBC % (auto) 0.0 (0.0-0.2) /100WBC Radiology Impression Discussion of test interpretation with radiology: I have reviewed the radiologist's reading. Radiologist Impression: INDINGS: There is right middle lobe consolidation. The exam is otherwise unremarkable with no other significant abnormality noted involving the heart, left lung, mediastinum, bony thorax or soft tissues. XR/XR chest 2V IMPRESSION: Right middle lobe pneumonia Discharge Plan Discharge Clinical Impression: Pneumonia Patient Disposition: Home, Self-Care Instructions: Pneumonia (ED) Additional Instructions: Please follow-up with your primary care physician tomorrow. If you have any worsening or new symptoms, please return to the emergency room or call 911 Prescriptions: New levofloxacin 500 mg tablet 500 mg PO DAILY Qty: 9 0RF No Action prednisone 20 mg tablet 40 mg PO DAILY Qty: 10 0RF clindamycin HCl 300 mg capsule 300 mg PO Q8H Qty: 21 0RF ibuprofen 600 mg tablet 600 mg PO Q8H PRN (Reason: pain) Qty: 20 0RF hydrocodone-acetaminophen 5-300 mg tablet 1 tab PO Q6H PRN (Reason: pain) Qty: 8 0RF Eliquis DVT-PE Treat 30D Start 5 mg (74 tabs) tablets,dose pack 5 mg PO BID Qty: 74 0RF Rx Instructions: Take 2 tablets twice daily for 7 days followed by 1 tablet twice daily metformin 500 mg tablet 500 mg PO BID Qty: 60 0RF
--- NOTE | 2022-07-25 00:14 | MHC.EDTECH ---
This tech assumed care of patient 0015 ,patient placed in hospital attire, vitals taken and placed on threat monitoring analyst. Call nation in reach.
[2022-07-25 00:16] VITALS: BP 147/86; PULSE 81; RESP 22; TEMP 36.9; O2SAT 94
[2022-07-25 00:57] LABS: Basophils Absolute Auto 0.1 X10*3/uL (0.0-0.2); Basophils Percent Auto 0.7 % (0-2); Eosinophils Absolute Auto 0.2 X10*3/uL (0.0-0.4); Hematocrit 39.2 % (42.0-52.0); Hemoglobin 13.3 g/dl (14.0-18.0); Imm Gran Abs Auto 0.03 X10*3/uL (0.00-0.03); Imm Gran Pct Auto 0.3 % (0.0-0.4); Lymphocytes Absolute Auto 2.7 X10*3/uL (1.2-4.9); Lymphocytes Percent Auto 27.7 % (20-40); MANUAL DIFF FLAG NO; Mean Corpuscular HGB Conc 33.9 g/dl (31.0-36.0); Mean Corpuscular Hemoglobin 29.2 pg (27.0-33.0); Mean Platelet Volume 9.2 fL (9.4-12.4); Monocytes Absolute Auto 0.7 X10*3/uL (0.1-1.2); Monocytes Percent Auto 7.6 % (2-11); Neutrophils Percent Auto 61.7 % (45-73); Platelet Count 353 X10*3/uL (160-400); Red Blood Count 4.56 X10*6/uL (4.60-5.80); Red Cell Distribution Width 12.7 % (11.0-16.0); White Blood Count 9.7 X10*3/uL (4.8-10.8)
--- NOTE | 2022-07-25 00:58 | MHC.EDTECH ---
Labs drawn on patient,and patient ambulated to bathroom with no assistance.
[2022-07-25 01:13] LABS: Anion Gap 14 (12-20); Blood Urea Nitrogen 12 mg/dL (9-16); Calcium 8.5 mg/dL (8.4-10.2); Carbon Dioxide 25 mmol/L (22-29); Chloride 105 mmol/L (96-108); Creatinine Clr Calc Pharmacy 168.1; Estimated Glomerular Filt Rate > 60; Glucose Random 174 mg/dL (60-115); Potassium 4.3 mmol/L (3.3-5.1); Sodium 140 mmol/L (135-145)
--- NOTE | 2022-07-25 01:16 | MHC.EDTECH ---
This tech ambulated patient with O2 Sat monitoring, Patient has a walking O2 Sat of 95% on room air. and SONJA Carrasco was made aware
[2022-07-25 01:18] VITALS: O2SAT 95
--- NOTE | 2022-07-25 01:19 | PC.NURSE ---
this rn assumed care of pt @ 0015 pt ambulatory. pt partner at bedside. pt calm and cooperative.
[2022-07-25 01:29] VITALS: BP 154/89; PULSE 85; RESP 16; TEMP 36.9; O2SAT 94
--- NOTE | 2022-07-25 01:30 | MHC.EDTECH ---
Vitals taken, patient is getting discharged at this time RN at bedside.
[2022-07-25] MEDS: levoFLOXacin 500 MG TABLET PO (01:31)
--- NOTE | 2022-07-25 01:33 | PC.NURSE ---
pt medicated according to mar. vazquez pwd. pt's partner at bedside. pt provided with discharge packet. pt verbalized understanding of discharge plan
== END 2022-07-25 01:34 | disposition home or self-care (01) ==
PROVIDERS: Emergency Provider Emergency Medicine
DX: J18.9 Pneumonia, unspecified organism (principal); E11.9 Type 2 diabetes mellitus without complications; Z79.84 Long term (current) use of oral hypoglycemic drugs
CPT/HCPCS: 36415; 71046; 80048; 85025; 99283; 99284

== ENCOUNTER 2023-04-06 11:27 | Emergency (ER) | payer OTHER, SELFPAY ==
[2023-04-06 11:42] VITALS: BP 149/95; PULSE 76; RESP 20; TEMP 37.2; O2SAT 96; BMI 35.4
--- NOTE | 2023-04-06 11:47 | ED_ITS ---
HPI - General Adult General Chief complaint: Dental/Oral Stated complaint: Dental oinfection Time Seen by Provider: 04/06/23 11:46 Source: patient Mode of arrival: ambulatory Limitations: no limitations History of Present Illness HPI narrative: 42 yold male presents to the ED for tooth right upper dental pain with slight upper face swelling. Patient denies any trauma, fever, drooling, change in voice, neck swelling, chest pain, or shortness of breath. Related Data Previous Rx's Medication Instructions Recorded clindamycin HCl 300 mg capsule 300 mg PO Q8H #21 caps 02/28/21 hydrocodone 5 mg-acetaminophen 300 1 tab PO Q6H PRN pain #8 tabs 02/28/21 mg tablet ibuprofen 600 mg tablet 600 mg PO Q8H PRN pain #20 tabs 02/28/21 prednisone 20 mg tablet 40 mg (2 x 20 mg) PO DAILY #10 tabs 02/28/21 apixaban 5 mg (74 tabs) tablets in 5 mg PO BID #74 ea 08/07/21 a dose pack (Socset. DVT-PE Treat 30D Start) metformin 500 mg tablet 500 mg PO BID #60 tabs 08/07/21 levofloxacin 500 mg tablet 500 mg PO DAILY #9 tabs 07/25/22 acetaminophen 325 mg capsule 325 mg PO QID PRN pain 7 days #28 04/06/23 (Tylenol) caps amoxicillin 875 mg-potassium 1 tab PO BID 10 days #20 tabs 04/06/23 clavulanate 125 mg tablet oxycodone 5 mg capsule 5 mg PO Q8H PRN pain 3 days #9 caps 04/06/23 Allergies Allergy/AdvReac Type Severity Reaction Status Date / Time No Known Allergies Allergy Verified 04/06/23 11:45 Review of Systems 2 Review of Systems: Right upper molar pain. Yes all other systems are reviewed and are negative [facility] Past Medical History Medical History Diabetes Social History Social History Advance Directives: No Physical Exam ED Vital Signs: Vital Signs - 24 hr 04/06/23 11:42 Temperature 99.0 F Pulse Rate 76 Respiratory Rate 20 Blood Pressure 149/95 H Pulse Oximetry 96 Oxygen Delivery Method Room Air BMI result Body Mass Index 35.4 Const General: cooperative, healthy appearing, comfortable, no acute distress, well developed, alert, awake and Physically active Orientation/consciousness: oriented to person, oriented to place, oriented to time and patient oriented x3 HENMT Head: Yes normal to inspection, Yes No palpable skull fracture present, Yes normocephalic and Yes atraumatic Head images: 2 1. Slight swelling. No mass on palpaation or fluctulance. Teeth image: 2 1. yellow collection in tooth pocket with tenderness. Negative trismus. Negative gum swelling or erythema. negative for drooling. negative for hoarsness. negative for neck swelling Eyes General: appearance normal, both eyes and all related structures Neck Neck: Yes normal visual inspection, Yes full ROM, Yes no lymphadenopathy, Yes no meningeal signs, Yes trachea midline, Yes supple, No anterior neck swelling and No tender Chest Chest palpation & inspection: normal inspection of the chest and normal palpation of entire chest wall Resp Effort & Inspection: normal respiratory effort and able to speak in complete sentences Auscultation: clear to auscultation bilaterally Cardio Jugular venous distension: no JVD Heart sounds: S1 normal heart sound present and S2 normal heart sound present GI Inspection: Yes normal to inspection and No abdominal wall ecchymosis Palpation (GI): Soft to palpation, not firm, nontender, no guarding and not rigid General: No CVA tenderness and Yes no CVA tenderness Back/Spine/Pelvis Back: no CVA tenderness, No CVA tenderness and No back tenderness Skin General skin exam: no rashes or lesions noted, elasticity normal and turgor normal Neuro General: oriented to person, oriented to place, oriented to time, patient oriented x3, gait normal, tone normal, moves all extremities, Normal light touch and pain sensation, no meningeal signs, no focal motor deficits, CN's II-XI intact bilaterally and normal sensation to monofilament Extrem General: Yes normal to inspection, Yes full ROM and Yes capillary refill normal Psych Appearance: grossly normal, well kempt and not disheveled Medical Decision Making Medical Decision Making MDM Narrative: 42-year-old male presents to the ED for right upper molar pain with slight right upper facial swelling. Patient states will follow-up with dentist this week but just need antibiotics and pain medication. Patient denied any respiratory distress and negative for any swelling of neck. Physical exam negative for any neck swelling, drooling, trismus, change in voice, foul odor on breath, or oral lesions. Not suspecting any Benson's angina, retropharyngeal abscess, osteomylieitis, cellulitis, or large dental abscess. Patient explained worrsime signs and informed to return to the ED if he has them, Differential Diagnosis Differential Diagnoses: The differential diagnosis associated with the presentation includes (benson angina, retropharyngeal abscess, osteomylieitis, dental abscess) Admission/Observation Consideration of admission/observation: Escalation of care including admission/observation considered External Record Review External record reviewed: Other (prior ED visits) Prescription Management I considered prescription management with: Pain Medication and Antibiotic Discharge Plan Discharge Clinical Impression: Toothache Patient Disposition: Home, Self-Care Instructions: Toothache (ED) Additional Instructions: Return to the ED immediately for any worsening facial swelling, any neck swelling, drooling, change in voice shortness of breath, chest pain, inability tolerate solid food/liquid, foul breath odor, or any other concerning symptoms. Recommend follow-up with your dentist. Prescriptions: New amoxicillin-pot clavulanate 875-125 mg tablet 1 tab PO BID 10 Days Qty: 20 0RF acetaminophen [Tylenol] 325 mg capsule 325 mg PO QID PRN (Reason: pain) 7 Days Qty: 28 0RF oxycodone 5 mg capsule 5 mg PO Q8H PRN (Reason: pain) 3 Days Qty: 9 0RF Rx Instructions: Partial Fill upon patient request. No Action prednisone 20 mg tablet 40 mg PO DAILY Qty: 10 0RF clindamycin HCl 300 mg capsule 300 mg PO Q8H Qty: 21 0RF ibuprofen 600 mg tablet 600 mg PO Q8H PRN (Reason: pain) Qty: 20 0RF hydrocodone-acetaminophen 5-300 mg tablet 1 tab PO Q6H PRN (Reason: pain) Qty: 8 0RF Eliquis DVT-PE Treat 30D Start 5 mg (74 tabs) tablets,dose pack 5 mg PO BID Qty: 74 0RF Rx Instructions: Take 2 tablets twice daily for 7 days followed by 1 tablet twice daily metformin 500 mg tablet 500 mg PO BID Qty: 60 0RF levofloxacin 500 mg tablet 500 mg PO DAILY Qty: 9 0RF Stand Alone Forms: Work/School Release Interventions: ED Discharge Assessment Last Done: 04/06/23 11:57 Discharge Date/Time: 04/06/23 11:57 Print Language: Cymraes
== END 2023-04-06 11:57 | disposition home or self-care (01) ==
PROVIDERS: Emergency Provider Emergency Medicine
DX: K02.9 Dental caries, unspecified (principal); Z79.899 Other long term (current) drug therapy
CPT/HCPCS: 99282; 99283

== ENCOUNTER 2023-10-20 11:11 | Emergency (ER) | payer OTHER, SELFPAY ==
--- NOTE | ~2023-10-20 | XR_ITS ---
EXAMINATION: XR CHEST CLINICAL INFORMATION: Fever. COMPARISON: 07/24/2022 TECHNIQUE: 2 views of the chest were obtained. FINDINGS: The lungs are well expanded. Patchy airspace disease in the right middle lobe. No pleural effusion. Cardiac silhouette is unchanged. XR/XR chest 2V IMPRESSION: Possible right middle lobe infiltrate. Advise clinical correlation and short interval follow-up imaging.
[2023-10-20 11:37] VITALS: BP 142/93; PULSE 100; RESP 18; TEMP 36.8; O2SAT 95; BMI 32.0
--- NOTE | 2023-10-20 11:39 | ED.GENADULT ---
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 States he has been taking it easy for the past 5 days to feel better, but symptoms have not improved. Patient endorses fever(measured 100.6 yesterday), chills, headaches, loss of appetite, overall muscle pain throughout the entire body, weakness, tiredness which he has had for a long time . Endorses slight swelling to lower legs, however has been persistent for years. Patient endorses numbness on distal half of both feet bilaterally, stasis has been present for a couple years now. Patient states he has a history of tonsillar abscess, and has a history of a tonsillectomy. States the previous doctors said there was access can that continues to get recurrent abscess formation. He is of arrived to [facility] multiple times for abscess drainage, however they were not able to reach it. States abscess popped on its own 1 coughing multiple times. He is on antibiotics for this abscess. Patient states he has taken Motrin about 400 mg 3 times a day for the last 5 days. He is currently not on any medications, does not take a medications for his diabetes or blood thinners for the prior DVT. Patient does not have a PCP in his last visit was about 3-4 years ago. He does not endorse dizziness, shortness of breath, difficulty breathing, chest pain, abdominal pain, nausea, vomiting, diarrhea, urinary symptoms, difficulty with bowel movements, joint pain, muscle weakness, cough. MD complaint: body aches, fever Onset (ago): day(s) (5) Location: left, upper extremity and lower extremity (Plantar aspect of left and right foot, point tenderness) Severity: mild Pain Consistency: constant and other (worse in the morning) Relieving factors: medication (Motrin) Associated symptoms: fever/chills, headaches and loss of appetite Treatments prior to arrival: NSAID (Motrin) Related Data Previous Rx's ?Medication ?Instructions ?Recorded clindamycin HCl 300 mg capsule 300 mg PO Q8H #21 caps 02/28/21 hydrocodone 5 mg-acetaminophen 300 1 tab PO Q6H PRN pain #8 tabs 02/28/21 mg tablet ibuprofen 600 mg tablet 600 mg PO Q8H PRN pain #20 tabs 02/28/21 prednisone 20 mg tablet 40 mg (2 x 20 mg) PO DAILY #10 tabs 02/28/21 apixaban 5 mg (74 tabs) tablets in 5 mg PO BID #74 ea 08/07/21 a dose pack (Contact At Once! DVT-PE Treat 30D Start) metformin 500 mg tablet 500 mg PO BID #60 tabs 08/07/21 levofloxacin 500 mg tablet 500 mg PO DAILY #9 tabs 07/25/22 acetaminophen 325 mg capsule 325 mg PO QID PRN pain 7 days #28 04/06/23 (Tylenol) caps amoxicillin 875 mg-potassium 1 tab PO BID 10 days #20 tabs 04/06/23 clavulanate 125 mg tablet oxycodone 5 mg capsule 5 mg PO Q8H PRN pain 3 days #9 caps 04/06/23 azithromycin 250 mg tablet See Rx Instructions PO .COMPLEX #6 10/20/23 (Zithromax Z-Joel) tabs cefuroxime axetil 500 mg tablet 500 mg PO BID 7 days #14 tabs 10/20/23 glipizide 5 mg tablet 5 mg PO DAILY #30 tabs 10/20/23 Allergies Allergy/AdvReac Type Severity Reaction Status Date / Time No Known Allergies Allergy Verified 10/20/23 11:41 Review of Systems Review of Systems: Yes all other systems are reviewed and are negative FOR[facility] Past Medical History Medical History Diabetes Social History Social History Advance Directives: No Advance Directives Information Provided: No Do you have a plan to hurt others: No Plan Physical Exam ED Vital Signs: Vital Signs - 24 hr 10/20/23 11:37 10/20/23 14:56 10/20/23 15:37 Temperature 98.2 F 98.0 F 98.0 F Pulse Rate 100 80 80 Respiratory Rate 18 20 20 Blood Pressure 142/93 H 127/81 127/81 Pulse Oximetry 95 95 95 Oxygen Delivery Method Room Air Room Air Room Air BMI result Body Mass Index 32.0 Appearance: Alert. Oriented X3. No acute distress. HEENT: normal inspection, poor dentition CVS: Normal heart rate and rhythm. Pulses normal. Respiratory: No respiratory distress. Skin: Skin warm and dry. Normal skin color. Normal skin turgor. No rashes. Multiple dark colored scars on lower legs bilaterally, 1cm wound on left leg with scab present. Extremities: Slight swelling of legs bilaterally 1+, decreased sensation of distal half of feet bilaterally, pain with palpation of upper left arm (bicep), no pain or warmth noted on lower extremities, no pain with palpation to lower legs, no erythema noted in feet or lower extremities Neuro: Oriented X 3. No motor deficit. Sensory numbness on distal half of feet bilaterally. Course Course Course Narrative: RME performed by Nellie Matias PA-C. Patient is a 43 year old assigned male at presenting to the emergency department with his entire body hurting and feeling as though he has food or something stuck in between his throat and his stomach. Patient states that he has type 2 diabetes but doesn't manage it. Patient states over the last 5 days he has had bilateral arm and leg pain. Detailed physical exam and review of systems are deferred to the biomedical photographer. Labs and swabs ordered. Patient placed back in the waiting room pending room availability and results. Medications Administered Discontinued Medications Generic Name Dose Route Start Last Admin Trade Name Freq PRN Reason Stop Dose Admin Sodium Chloride 1,000 mls @ 999 mls/hr 10/20/23 13:00 10/20/23 15:06 Ns IV 10/20/23 14:00 Infused .Q1H1M TYLOR Infusion Procedures EJ/Peripheral Line Arm R: Time Out Performed: No Skin Cleansed in Sterile Fashion: Yes Size (gauge): 20 IV Secured and Dressing Applied: Yes Patient Tolerated Procedure: well and no complications Medical Decision Making Medical Decision Making MDM Narrative: 43 year old male with PMH of diabetes, recurrent peritonsilar abscess and DVT in his right leg, opiate use disorder on methadone, ADHD and anxiety who presents to the ED today with complaints generalized muscle pain, specifically pain in his left upper extremity, and pain on the plantar aspect of both feet for 5 days. Patient arrives to the ER hemodynamically stable. he is mildly tachycardic with a heart rate of 100. He is afebrile here. Lab workup was showing a leukocytosis of 16,000. his viral panel was negative. His platelet counts elevated with normal LFTs. His kidney function is normal. His sugar is 398 with no anion gap. He is noncompliant with his glipizide, currently has no PCP. CPK and inflammatory markers were added to his workup. CPK is negative, inflammatory markers are markedly elevated, unclear etiology. Considering a rheumatologic or autoimmune process. Patient denies any recent tick bites, the only activity he does outside is mow the lawn. Tick panel was sent. Chest x-ray was obtained given his report of fever that shows a possible evolving right-sided pneumonia. His urinalysis is positive for an infection slightly. His examination today is unremarkable, his strength is equal and symmetrical & throughout he remained afebrile while in the ER. No significant muscle tenderness or pain. IV was established and he was given IV fluids with improvement in his glucose to 262. Will start patient on antibiotics to cover pneumonia and UTI. Tick-borne panel is pending. We will be contacted if it is positive. Will start patient on glipizide for his untreated diabetes. He was counseled on importance of medication compliance and need for outpatient follow-up and care. Patient expressed understanding and all questions were answered. Stable for discharge home Differential Diagnosis Differential Diagnoses: The differential diagnosis associated with the presentation includes Viral illness, pneumonia, UTI, polymyositis, autoimmune disorder, rheumatologic disorder, tick-borne illness, EBV Admission/Observation Consideration of admission/observation: Escalation of care including admission/observation considered Lab Data MDM Lab Attestation statement: I reviewed the patient's lab results. Leukocytosis, thrombocytosis, anemia, pseudohyponatremia with hyperglycemia, no anion gap 10/20/23 11:48 10/20/23 11:48 Labs: Lab Results 10/20/23 10/20/23 10/20/23 Range/Units 11:48 13:07 15:05 WBC 16.0 H (4.8-10.8) X10*3/uL RBC 4.60 (4.60-5.80) X10*6/uL Hgb 12.9 L (14.0-18.0) g/dl Hct 38.5 L (42.0-52.0) % MCV 83.7 (80.0-98.0) fL MCH 28.0 (27.0-33.0) pg MCHC 33.5 (31.0-36.0) g/dl RDW 12.5 (11.0-16.0) % Plt Count 513 H D (160-400) X10*3/uL MPV 8.7 L (9.4-12.4) fL Immature Gran % (Auto) 0.9 H (0.0-0.4) % Neut % (Auto) 74.0 H (45-73) % Lymph % (Auto) 16.4 L (20-40) % [place] % (Auto) 7.4 (2-11) % Eos % (Auto) 0.7 (0-4) % Baso % (Auto) 0.6 (0-2) % Lymph # (Auto) 2.6 (1.2-4.9) X10*3/uL [place] # (Auto) 1.2 (0.1-1.2) X10*3/uL Eos # (Auto) 0.1 (0.0-0.4) X10*3/uL Baso # (Auto) 0.1 (0.0-0.2) X10*3/uL Abs Immat Gran (auto) 0.14 H (0.00-0.03) X10*3/uL Absolute Neuts (auto) 11.9 H (2.0-8.3) x10*3/uL Absolute Nucleated RBC 0.000 (0.0-0.012) X10*3/uL Nucleated RBC % (auto) 0.0 (0.0-0.2) /100WBC ESR 76 H (0-15) MM/HR Sodium 132 L (135-145) mmol/L Potassium 4.2 (3.3-5.1) mmol/L Chloride 96 (96-108) mmol/L Carbon Dioxide 25 (22-29) mmol/L Anion Gap 15 (12-20) BUN 11 (9-16) mg/dL Creatinine 0.90 (0.5-1.4) mg/dL Estim Creat Clear Calc 127.4 Estimated GFR > 60 POC Glucose 262 H (60-115) mg/dL Random Glucose 398 H* (60-115) mg/dL Calcium 9.2 D (8.4-10.2) mg/dL Magnesium 1.9 (1.6-2.6) mg/dL Total Bilirubin 0.5 (0.0-1.0) mg/dL AST 10 (5-37) U/L ALT 13 (0-40) U/L Alkaline Phosphatase 103 (39-117) U/L Total Creatine Kinase 28 L (38-174) U/L C-Reactive Protein 11.16 H (< or = 0.50) mg/dL Total Protein 7.8 (6.5-8.0) g/dL Albumin 3.4 L (3.5-5.0) g/dL Urine Color Yellow Urine Appearance Clear Urine pH 6.0 (5.0-9.0) Ur Specific [place] 1.020 (1.005-1.025) Urine Protein Negative (Neg-Trace) mg/dL Urine Glucose (UA) >=1000 H (Negative) mg/dL Urine Ketones Negative (Negative) mg/dL Urine Blood Trace H (Negative) Urine Nitrite Negative (Negative) Ur Leukocyte Esterase Small (1+) H (Negative) Urine RBC 0-2 (0-2) /HPF Urine WBC 21-50 H (0-5) /HPF Ur Squamous Epith Cells 0-2 (0-2) /HPF Urine Bacteria None Seen (None Seen) Hyaline Casts 0-2 (0-2) /LPF Urine Opiates Screen Not Detected (Not Detect) Ur Buprenorphine Scrn Not Detected (Not Detect) ng/mL Ur Oxycodone Screen Positive H (Not Detect) ng/mL Urine Methadone Screen Positive H (Not Detect) ng/mL Urine Fentanyl Screen Not Detected (Not Detect) Ur Barbiturates Screen Not Detected (Not Detect) Ur Phencyclidine Scrn Not Detected (Not Detect) Ur Amphetamines Screen POSITIVE H (Not Detect) U Benzodiazepines Scrn Not Detected (Not Detect) Urine Cocaine Screen Not Detected (Not Detect) U Marijuana (THC) Screen Not Detected (Not Detect) Influenza Type A (PCR) NEGATIVE (Negative) Influenza Type B (PCR) NEGATIVE (Negative) RSV RNA Qual (PCR) NEGATIVE (Negative) SARS-CoV-2 RNA (RT-PCR) NEGATIVE (Negative) S. pyogenes GrpA ABNER Negative (Negative) Independent Interpretation I performed an independent interpretation of an: Plain X-Ray Interpretation: Trace right middle lobe opacity consistent with possible early pneumonia, agree with radiology read Radiology Impression Discussion of test interpretation with radiology: I have reviewed the radiologist's reading. Radiologist Impression: XR CHEST CLINICAL INFORMATION: Fever. COMPARISON: 07/24/2022 TECHNIQUE: 2 views of the chest were obtained. FINDINGS: The lungs are well expanded. Patchy airspace disease in the right middle lobe. No pleural effusion. Cardiac silhouette is unchanged. XR/XR chest 2V IMPRESSION: Possible right middle lobe infiltrate. Advise clinical correlation and short interval follow-up imaging. Independent Historian Clinical information obtained from an independent historian. History obtained from or confirmed by: Spouse External Record Review External record reviewed: Outpatient record, Prior outpatient labs and Prior outpatient radiology Prescription Management I considered prescription management with: Pain Medication and Antibiotic Chronic Conditions Patient?s care impacted by: Diabetes Social Determinants Patient?s care significantly limited by Social Determinants of Health including: Problems related to primary support group and Other Social Determinant of Health Critical Care Time Critical Care Time Critical Care Time: No Discharge Plan Discharge Clinical Impression: Hyperglycemia due to diabetes mellitus Urinary tract infection Qualifiers: Urinary tract infection type: acute cystitis Hematuria presence: with hematuria Qualified Code(s): N30.01 - Acute cystitis with hematuria Pneumonia Qualifiers: Pneumonia type: due to unspecified organism Laterality: right Lung location: unspecified part of lung Qualified Code(s): J18.9 - Pneumonia, unspecified organism Patient Disposition: Home, Self-Care Instructions: Urinary Tract Infection in Men (DC), Community Acquired Pneumonia (DC) Additional Instructions: Your lab workup today showed glucose of almost 400. You had very elevated inflammatory markers. Your white blood cell count was also elevated. You are found to have pneumonia and urinary tract infection. Take the prescribed antibiotics as directed, complete the entire course and do not miss any doses Rest and drink plenty of fluids. Take the prescribed glipizide for your diabetes. You most likely will need to have this medication titrated up and have another medication added to manage your diabetes. A tick-borne panel was sent off, if anything comes back positive we will call you and get you started on the appropriate antibiotic for this. It is very important that you find a primary care doctor to manage her diabetes. If you develop new or worsening symptoms call 911 or come back to the ER for further evaluation. Prescriptions: New azithromycin [Zithromax Z-Joel] 250 mg tablet See Rx Instructions .ROUTE .COMPLEX Qty: 6 0RF Rx Instructions: take 500 mg today (day 1), then 250 mg for 4 days (days 2-5) cefuroxime axetil 500 mg tablet 500 mg PO BID 7 Days Qty: 14 0RF glipizide 5 mg tablet 5 mg PO DAILY Qty: 30 1RF No Action prednisone 20 mg tablet 40 mg PO DAILY Qty: 10 0RF clindamycin HCl 300 mg capsule 300 mg PO Q8H Qty: 21 0RF ibuprofen 600 mg tablet 600 mg PO Q8H PRN (Reason: pain) Qty: 20 0RF hydrocodone-acetaminophen 5-300 mg tablet 1 tab PO Q6H PRN (Reason: pain) Qty: 8 0RF Eliquis DVT-PE Treat 30D Start 5 mg (74 tabs) tablets,dose pack 5 mg PO BID Qty: 74 0RF Rx Instructions: Take 2 tablets twice daily for 7 days followed by 1 tablet twice daily metformin 500 mg tablet 500 mg PO BID Qty: 60 0RF levofloxacin 500 mg tablet 500 mg PO DAILY Qty: 9 0RF amoxicillin-pot clavulanate 875-125 mg tablet 1 tab PO BID 10 Days Qty: 20 0RF acetaminophen [Tylenol] 325 mg capsule 325 mg PO QID PRN (Reason: pain) 7 Days Qty: 28 0RF oxycodone 5 mg capsule 5 mg PO Q8H PRN (Reason: pain) 3 Days Qty: 9 0RF Rx Instructions: Partial Fill upon patient request. Referrals: [facility] [Provider Group] [facility] [place] [facility] [place]Provider Group] [facility] [place] [facility] [place] [facility] Stand Alone Forms: Work/School Release Interventions: ED Discharge Assessment Last Done: 10/20/23 15:37 Discharge Date/Time: 10/20/23 15:38 Print Language: Dominican
[2023-10-20 12:06] LABS: MANUAL DIFF FLAG NO
[2023-10-20 12:08] LABS: Basophils Absolute Auto 0.1 X10*3/uL (0.0-0.2); Basophils Percent Auto 0.6 % (0-2); Eosinophils Absolute Auto 0.1 X10*3/uL (0.0-0.4); Eosinophils Percent Auto 0.7 % (0-4); Hematocrit 38.5 % (42.0-52.0); Hemoglobin 12.9 g/dl (14.0-18.0); Imm Gran Abs Auto 0.14 X10*3/uL (0.00-0.03); Imm Gran Pct Auto 0.9 % (0.0-0.4); Lymphocytes Absolute Auto 2.6 X10*3/uL (1.2-4.9); Lymphocytes Percent Auto 16.4 % (20-40); Mean Corpuscular HGB Conc 33.5 g/dl (31.0-36.0); Mean Corpuscular Volume 83.7 fL (80.0-98.0); Mean Platelet Volume 8.7 fL (9.4-12.4); Monocytes Absolute Auto 1.2 X10*3/uL (0.1-1.2); Monocytes Percent Auto 7.4 % (2-11); Neutrophils Absolute Auto 11.9 x10*3/uL (2.0-8.3); Platelet Count 513 X10*3/uL (160-400); Red Cell Distribution Width 12.5 % (11.0-16.0)
[2023-10-20 12:40] LABS: C Reactive Protein 11.16 mg/dL (< or = 0.50)
[2023-10-20 12:44] LABS: Anion Gap 15 (12-20); Blood Urea Nitrogen 11 mg/dL (9-16); Calcium 9.2 mg/dL (8.4-10.2); Carbon Dioxide 25 mmol/L (22-29); Chloride 96 mmol/L (96-108); Creatinine Clr Calc Pharmacy 127.4; Estimated Glomerular Filt Rate > 60; Magnesium 1.9 mg/dL (1.6-2.6); Potassium 4.2 mmol/L (3.3-5.1); Sodium 132 mmol/L (135-145)
[2023-10-20 12:45] LABS: Alanine Aminotransferase 13 U/L (0-40); Albumin Level 3.4 g/dL (3.5-5.0); Alkaline Phosphatase 103 U/L (39-117); Aspartate Amino Transferase 10 U/L (5-37); Bilirubin Total 0.5 mg/dL (0.0-1.0); Total Protein 7.8 g/dL (6.5-8.0)
[2023-10-20 12:47] LABS: Influenza A PCR NEGATIVE (Negative); Influenza B PCR NEGATIVE (Negative); Resp Syncy Virus RNA Qual PCR NEGATIVE (Negative); SARS COV2 PCR INHOUSE NEGATIVE (Negative)
[2023-10-20 12:48] LABS: Glucose Random 398 mg/dL (60-115)
[2023-10-20 13:05] LABS: Erythrocyte Sedimentation Rate 76 MM/HR (0-15)
[2023-10-20 13:29] LABS: Appearance Urine Clear; Color Urine Yellow; Glucose Urine UA >=1000 mg/dL (Negative); Leukocyte Esterase Urine Small (1+) (Negative); Nitrite Urine Negative (Negative); UMIC TRIGGER UACC YES; Urine Blood Trace (Negative); Urine Ketones Negative (Negative); Urine Protein Negative (Neg-Trace)
[2023-10-20 13:31] LABS: IDNOW Serial# 08D9AD1C
[2023-10-20 13:32] LABS: Strep A Nucleic Acid Negative (Negative)
[2023-10-20 13:35] LABS: Amphetamine Screen Urine POSITIVE (Not Detect); Barbiturates, Urine Not Detected (Not Detect); Benzodiazepines Screen Urine Not Detected (Not Detect); Buprenorphine Scr Not Detected (Not Detect); Cannabinoid Screen Urine Not Detected (Not Detect); Cocaine Screen Urine Not Detected (Not Detect); Fentanyl, urine Not Detected (Not Detect); Methadone Screen, Urine Positive (Not Detect); Opiate Screen Urine Not Detected (Not Detect); Oxycodone Screen Urine Positive (Not Detect); Phencyclidine Screen Urine Not Detected (Not Detect)
[2023-10-20 13:37] LABS: Bacteria Urine None Seen (None Seen); Hyaline Casts Urine 0-2 /LPF (0-2); RBC Urine 0-2 /HPF (0-2); Squamous Epithelial Cell Urine 0-2 /HPF (0-2); UACC Culture Trigger YES; WBC Urine 21-50 /HPF (0-5)
[2023-10-20] MEDS: 0.9 % Sodium Chloride 1,000 ML 999 ML IV (13:51)
[2023-10-20 14:56] VITALS: BP 127/81; PULSE 80; RESP 20; TEMP 36.7; O2SAT 95
[2023-10-20 15:09] LABS: Glucose, Whole Blood 262 mg/dL (60-115)
[2023-10-20 15:37] VITALS: BP 127/81; PULSE 80; RESP 20; TEMP 36.7; O2SAT 95
[2023-10-21 17:04] LABS: A. Phagocytphilium DNA,RT-PCR NOT DETECTED (NOT DETECTED); Babesia Microti DNA, RT-PCR NOT DETECTED (NOT DETECTED); Borrelia Miyamotoi,DNA RT-PCR NOT DETECTED (NOT DETECTED); E.Chaffeensis DNA RT-PCR NOT DETECTED (NOT DETECTED); Lyme(Borrelia ssp)DNA RT-PCR NOT DETECTED (NOT DETECTED)
[2023-10-21 17:39] LABS: Lyme Abs Screen <0.90 index
== END 2023-10-20 15:38 | disposition home or self-care (01) ==
PROVIDERS: Physician Assistant; Physician Assistant Medical; Emergency Provider Emergency Medicine Emergency Medical Services; PCP Internal Medicine
DX: J18.9 Pneumonia, unspecified organism (principal); E11.65 Type 2 diabetes mellitus with hyperglycemia; N30.01 Acute cystitis with hematuria; M79.10 Myalgia, unspecified site; R11.0 Nausea; R50.9 Fever, unspecified; R00.0 Tachycardia, unspecified; M79.605 Pain in left leg; M79.604 Pain in right leg; R60.0 Localized edema; R51.9 Headache, unspecified; Z03.818 Encounter for observation for suspected exposure to other biological agents ruled out; Z79.899 Other long term (current) drug therapy
CPT/HCPCS: 0241U; 36415; 36556; 71046; 80053; 80307; 81001; 82550; 82947; 83735; 85025; 85652; 86140; 86617; 86618; 87086; 87088; 87186; 87468; 87469; 87478; 87484; 87651; 87798; 96360; 99284